=== PATIENT | female | born 1995 | race Caucasian/White ===

== ENCOUNTER 2019-01-09 16:46 | Emergency (ER) | payer OTHER ==
[~2019-01-09] VITALS: Ht 152.4 cm; Wt 57.6 kg
[2019-01-09 16:53] VITALS: BP 135/77
--- NOTE | 2019-01-09 17:19 | NUR ---
23 Y FEMALE C/O VAGINAL SPOTTING. PT STATES SHE WAS AT [place] LAST WEEK AND WAS TOLD SHE WAS . UNKOWN WKS OF , LMP 12/02/18. +CRAMPING PAIN 10/18. +CONSTIPATION. BOWEL SOUNDS ACTIVE IN ALL 4 QUADRANTS. ABDOMEN SOFT AND FLAT. AA0X4. VSS AT THIS TIME. BED IS DOWN, LOCKED, BED RAIL X 1, ERMD TO SEE PT. HX OF ASTHMA, HTN, WPW syndrome.
--- NOTE | 2019-01-09 17:22 | NUR ---
LAB AT BEDSIDE
--- NOTE | 2019-01-09 17:28 | NUR ---
US AT BEDSIDE
[2019-01-09 17:34] LABS: APPEARANCE,URINE CLEAR (CLEAR); BILIRUBIN,URINE NEGATIVE (NEGATIVE); BLOOD, URINE NEGATIVE (NEGATIVE); COLOR,URINE YELLOW (YELLOW); LEUKOCYTE ESTERASE ,URINE NEGATIVE (NEGATIVE); NITRITE, URINE NEGATIVE (NEGATIVE); UGLUCOSE NEGATIVE (NEGATIVE)
[2019-01-09 17:39] LABS: BASOPHILS % (AUTO) 0.3 % (0.0-2.0); EOSINOPHILS # (AUTO) 0.1 K/uL (0-0.4); EOSINOPHILS % (AUTO) 1.3 % (0.0-4.0); HEMATOCRIT 37.8 % (36-48); HEMOGLOBIN 12.6 g/dL (12.0-16.0); LYMPHOCYTES # (AUTO) 2.6 K/uL (2.5-16.5); MEAN CORPUSCULAR HEMOGLOBIN 30 pg (27-31); MEAN CORPUSCULAR HGB CONC 34 g/dL (33-37); MEAN CORPUSCULAR VOLUME 90.7 fL (80-94); MONOCYTES # (AUTO) 0.6 K/uL (0.8-1.0); MONOCYTES % (AUTO) 5.2 % (1.7-9.3); NEUTROPHILS # (AUTO) 8.4 K/uL (1.8-7.7); NEUTROPHILS % (AUTO) 71.2 % (42.2-75.2); PLATELET COUNT (AUTO) 260 K/uL (140-450); RED BLOOD CELL COUNT(AUTO) 4.17 MIL/uL (4.20-5.40); RED CELL DISTRIBUTION WIDTH 13.7 % (11.6-13.7); WHITE BLOOD COUNT (AUTO) 11.8 K/uL (4.8-10.8)
--- NOTE | 2019-01-09 18:01 | NUR ---
pt amb to restroom
--- NOTE | 2019-01-09 18:44 | NUR ---
vss at this time, aa0x4. pt sitting in bed. waiting for ultrasound results.
--- NOTE | 2019-01-09 18:50 | NUR ---
dr barnett re-evaluating pt
[2019-01-09 18:58] VITALS: BP 115/60
--- NOTE | 2019-01-09 18:58 | NUR ---
Patient discharged with v/s stable. Written and verbal after care instructions given and explained. Patient verbalized understanding. Ambulatory with steady gait. All questions addressed prior to discharge. Advised to follow up with GYNOCOLOGIST.
== END 2019-01-09 18:58 | disposition home or self-care (01) ==
LOC: MED 16:46
DX: O20.0 Threatened abortion (principal); J45.909 Unspecified asthma, uncomplicated; I10 Essential (primary) hypertension; Z88.1 Allergy status to other antibiotic agents; Z3A.01 Less than 8 weeks gestation of pregnancy
CPT/HCPCS: 36415; 76817; 81003; 81025; 84702; 85025; 86900; 86901; 99284; Q0092

== ENCOUNTER 2019-01-15 02:39 | Emergency (ER) | payer OTHER ==
[~2019-01-15] VITALS: Ht 152.4 cm; Wt 60.8 kg
[2019-01-15 02:45] VITALS: BP 140/90
--- NOTE | 2019-01-15 02:45 | NUR ---
TO BED # 04 AMBULATORY
--- NOTE | 2019-01-15 02:46 | NUR ---
PT CAME INTO ER WITH C/O DIARRHEA X 1 DAY. PT STATED SHE FEELS NAUSEOUS, HAS CHILLS, FEELS WEAK, AND A BURNING SENSATION IN THE EPIGASTRIC REGION. PT DENIES VOMITING OR FEVER. PT STATES SHE IS 6 WEEKS . LMP IS DECEMBER 02 AND PROJECTED DUE DATE IS SEPTEMBER 06. PT IS A/OX4.PAIN LEVEL IS 6/10 AT THIS TIME. ER MD MADE AWARE OF STATUS. SAFETY MEASURS IN PLACE, BED RAILS UP X 1.
[2019-01-15] MEDS ORDERED: LOPERAMIDE 2 MG CAP PO ONE ×2 (03:45→04:14)
[2019-01-15] MEDS ORDERED: NACL 0.9% 1,000 ML IV ONE (03:45)
[2019-01-15 03:57] LABS: BASOPHILS # (AUTO) 0.1 K/uL (0.00-0.22); BASOPHILS % (AUTO) 0.7 % (0.0-2.0); EOSINOPHILS # (AUTO) 0.1 K/uL (0-0.4); EOSINOPHILS % (AUTO) 0.6 % (0.0-4.0); LYMPHOCYTES # (AUTO) 1.8 K/uL (2.5-16.5); LYMPHOCYTES % (AUTO) 12.9 % (20.5-51.1); MEAN CORPUSCULAR HEMOGLOBIN 30 pg (27-31); MEAN CORPUSCULAR HGB CONC 33 g/dL (33-37); MEAN CORPUSCULAR VOLUME 90.8 fL (80-94); MONOCYTES # (AUTO) 0.7 K/uL (0.8-1.0); MONOCYTES % (AUTO) 5.1 % (1.7-9.3); NEUTROPHILS # (AUTO) 11.5 K/uL (1.8-7.7); NEUTROPHILS % (AUTO) 80.7 % (42.2-75.2); PLATELET COUNT (AUTO) 276 K/uL (140-450); RED BLOOD CELL COUNT(AUTO) 4.29 MIL/uL (4.20-5.40); RED CELL DISTRIBUTION WIDTH 13.3 % (11.6-13.7); WHITE BLOOD COUNT (AUTO) 14.2 K/uL (4.8-10.8)
--- NOTE | 2019-01-15 04:03 | NUR ---
pt ambulated to the restroom, pt tolerated well.
[2019-01-15 04:34] LABS: CARBON DIOXIDE 25.7 mmol/L (21-32); CREATININE 0.5 mg/dL (0.6-1.3); POTASSIUM 3.7 mmol/L (3.5-5.1)
[2019-01-15 05:00] VITALS: BP 140/90
--- NOTE | 2019-01-15 05:00 | NUR ---
Patient discharged with v/s stable. Written and verbal after care instructions given and explained. Patient verbalized understanding. Ambulatory with steady gait. All questions addressed prior to discharge. Advised to follow up with PMD.
== END 2019-01-15 05:00 | disposition home or self-care (01) ==
LOC: MED 02:39
DX: O26.891 Other specified pregnancy related conditions, first trimester (principal); R19.7 Diarrhea, unspecified; R53.1 Weakness; J45.909 Unspecified asthma, uncomplicated; I10 Essential (primary) hypertension; Z88.1 Allergy status to other antibiotic agents; Z3A.01 Less than 8 weeks gestation of pregnancy
CPT/HCPCS: 36415; 80048; 81025; 85025; 96360; 99283; J7030

== ENCOUNTER 2019-01-25 14:45 | Emergency (ER) | payer OTHER ==
[~2019-01-25] VITALS: Ht 152.4 cm; Wt 62.8 kg
[2019-01-25 15:15] VITALS: BP 145/78
--- NOTE | 2019-01-25 18:01 | NUR ---
PT AMBULATED TO BED 11
--- NOTE | 2019-01-25 19:00 | NUR ---
C/O INTERMITTENT SHARP SHOOTING SUBSTERNAL CHEST PAIN X 12/02/2018; SAME TIME SHE WAS PLACED ON Nifedipine PT DESCRIBES PAIN NON RADIATING, SELF RELIEVING, ACCOMPANIED WITH SOB DAILY OCCURENCE----WALKED INTO ER TODAY BECAUSE VIBRATION ANALYST REFERRED HER SINCE HER NEXT APPT IS IN 1-2 WEEKS --DENIES VAGINAL BLEEDING, DENIES INJURY/TRAUMA, DENIES COLD SYMPTOMS
[2019-01-25] MEDS ORDERED: ACETAMINOPHEN EXTRA STRENGTH 500 MG TAB PO ONE (19:50)
[2019-01-25] MEDS ORDERED: NIFEdipine 30 MG TABER PO ONE (19:50)
--- NOTE | 2019-01-25 20:10 | NUR ---
PT REFUSING TYLENOL. ER MD CUEVAS AWARE.
[2019-01-25 20:33] LABS: APPEARANCE,URINE CLEAR (CLEAR); BILIRUBIN,URINE NEGATIVE (NEGATIVE); BLOOD, URINE NEGATIVE (NEGATIVE); COLOR,URINE YELLOW (YELLOW); LEUKOCYTE ESTERASE ,URINE NEGATIVE (NEGATIVE); NITRITE, URINE NEGATIVE (NEGATIVE); UGLUCOSE NEGATIVE (NEGATIVE)
[2019-01-25 21:07] VITALS: BP 135/70
--- NOTE | 2019-01-25 21:07 | NUR ---
Patient discharged with v/s stable. Written and verbal after care instructions given and explained. Patient alert, oriented and verbalized understanding of instructions. Ambulatory with steady gait. All questions addressed prior to discharge. ID band removed. Patient advised to follow up with OB. Rx of NIFEDIPINE given. Patient educated on indication of medication including possible reaction and side effects. Opportunity to ask questions provided and answered.
== END 2019-01-25 21:07 | disposition home or self-care (01) ==
LOC: MED 14:45
DX: O13.1 Gestational [pregnancy-induced] hypertension without significant proteinuria, first trimester (principal); O26.891 Other specified pregnancy related conditions, first trimester; R42 Dizziness and giddiness; R07.9 Chest pain, unspecified; J45.909 Unspecified asthma, uncomplicated; K21.9 Gastro-esophageal reflux disease without esophagitis; Z3A.08 8 weeks gestation of pregnancy; Z88.1 Allergy status to other antibiotic agents
CPT/HCPCS: 76815; 81003; 81025; 93005; 99284

== ENCOUNTER 2019-03-17 20:24 | Emergency (ER) | payer OTHER ==
[~2019-03-17] VITALS: Ht 152.4 cm; Wt 61.7 kg
[2019-03-17 20:48] VITALS: BP 138/77
[2019-03-17] MEDS ORDERED: NIFE30TE98 PO (20:53)
[2019-03-17] MEDS ORDERED: SUCR1TAB35 PO (20:54)
--- NOTE | 2019-03-17 20:54 | NUR ---
PT AMBULATED TO LOBBY. PROVIDING URINE.
--- NOTE | 2019-03-17 20:59 | NUR ---
PT AMBULATED TO BED 04
--- NOTE | 2019-03-17 21:00 | NUR ---
PT BIB MOTHER C/O RLQ ABD PAIN X2 DAYS. PT STATES PAIN 5-6 INTERMITTENT CRAMPING; STATES WHITE VAG DISCHARGE, DENIES VAGINAL BLEEDING. G3PO: 2 THERAPUTIC ABORTIONS. DENIES N/V/D. PT STATES SHE HAS A PRIMARY OB. PT ACTING APPROPRIATLY, SPEAKING IN CLEAR AND COMPLETE SENTENCES. BREATHING EQUAL AND UNLABORED. PT PLACED IN GOWN, IN BED; BEDRAILS UP X1. PENDING ERMD EVAL. --FHR: 150 PMH: HTN, H-PILORI, WPW
--- NOTE | 2019-03-17 21:12 | NUR ---
DR. QUISPE AT BEDSIDE.
[2019-03-17 21:35] VITALS: BP 138/77
== END 2019-03-17 21:35 | disposition home or self-care (01) ==
LOC: MED 20:24
DX: O26.892 Other specified pregnancy related conditions, second trimester (principal); R10.31 Right lower quadrant pain; J45.909 Unspecified asthma, uncomplicated; K21.9 Gastro-esophageal reflux disease without esophagitis; I10 Essential (primary) hypertension; Z3A.15 15 weeks gestation of pregnancy; Z88.1 Allergy status to other antibiotic agents; Z79.899 Other long term (current) drug therapy
CPT/HCPCS: 81002; 81025; 99282

== ENCOUNTER 2019-03-21 06:35 | Emergency (ER) | payer OTHER ==
[~2019-03-21] VITALS: Ht 152.4 cm; Wt 63.5 kg
[~2019-03-21 06:35] MED LIST: NIFE30TE98 PO; SUCR1TAB35 PO
[2019-03-21 06:40] VITALS: BP 135/75
--- NOTE | 2019-03-21 06:40 | NUR ---
23 Y/O FEMALE PRESENTS TO ED WITH C/O BUTT PAIN 4/10 AFTER WAKING AND BILAT SUPRAPUBIC CRAMPING WITH SPOTTING X30 MIN. PT STATES SYMPTOMS STARTED UPON WAKING. SHE DRANK WATER AND IT HELPED WITH BUTT. WHILE USING RESTROOM, SHE WAS WIPING AND FOUND THE BLOOD AND CAME TO ER RIGHT AWAY. CRAMPING PAIN 2/10 AND NON-RADIATING. VSS. POSITIONED IN BED FOR COMFORT. ER MD AWARE. CONTINUE TO MONITOR.
--- NOTE | 2019-03-21 06:40 | NUR ---
PT TAKEN TO BED 2
--- NOTE | 2019-03-21 07:14 | NUR ---
received report from epifanio hong
[2019-03-21] MEDS ORDERED: ACETAMINOPHEN EXTRA STRENGTH 500 MG TAB PO ONE (07:20)
--- NOTE | 2019-03-21 07:20 | NUR ---
er md at bedside at this time
--- NOTE | 2019-03-21 07:33 | NUR ---
ASSESSED HEART TONES USING DOPPLER, HEART RTE 156, LOCATED IN RLQ, PT TOLERATED WELL.
[2019-03-21 08:22] VITALS: BP 112/68
== END 2019-03-21 08:22 | disposition home or self-care (01) ==
LOC: MED 06:35
DX: O26.851 Spotting complicating pregnancy, first trimester (principal); O26.891 Other specified pregnancy related conditions, first trimester; R51 Headache; R10.30 Lower abdominal pain, unspecified; K21.9 Gastro-esophageal reflux disease without esophagitis; I10 Essential (primary) hypertension; Z79.899 Other long term (current) drug therapy; Z88.1 Allergy status to other antibiotic agents; Z3A.15 15 weeks gestation of pregnancy
CPT/HCPCS: 81002; 81025; 99282

== ENCOUNTER 2019-05-27 23:32 | Emergency (ER) | payer OTHER ==
[~2019-05-27] VITALS: Ht 152.4 cm; Wt 72.3 kg
[2019-05-27 23:40] VITALS: BP 128/76
[2019-05-28 00:45] LABS: APPEARANCE,URINE CLEAR (CLEAR); BILIRUBIN,URINE NEGATIVE (NEGATIVE); BLOOD, URINE NEGATIVE (NEGATIVE); COLOR,URINE YELLOW (YELLOW); LEUKOCYTE ESTERASE ,URINE NEGATIVE (NEGATIVE); NITRITE, URINE NEGATIVE (NEGATIVE); UGLUCOSE NEGATIVE (NEGATIVE)
[2019-05-28 00:49] LABS: BASOPHILS # (AUTO) 0.1 K/uL (0.00-0.22); BASOPHILS % (AUTO) 0.6 % (0.0-2.0); EOSINOPHILS # (AUTO) 0.2 K/uL (0-0.4); EOSINOPHILS % (AUTO) 1.1 % (0.0-4.0); HEMATOCRIT 36.5 % (36-48); LYMPHOCYTES % (AUTO) 19.2 % (20.5-51.1); MEAN CORPUSCULAR HEMOGLOBIN 31 pg (27-31); MEAN CORPUSCULAR HGB CONC 33 g/dL (33-37); MEAN CORPUSCULAR VOLUME 95.2 fL (80-94); MONOCYTES # (AUTO) 0.8 K/uL (0.8-1.0); MONOCYTES % (AUTO) 5.3 % (1.7-9.3); NEUTROPHILS # (AUTO) 11.4 K/uL (1.8-7.7); NEUTROPHILS % (AUTO) 73.8 % (42.2-75.2); PLATELET COUNT (AUTO) 304 K/uL (140-450); RED BLOOD CELL COUNT(AUTO) 3.83 MIL/uL (4.20-5.40); RED CELL DISTRIBUTION WIDTH 14.1 % (11.6-13.7); WHITE BLOOD COUNT (AUTO) 15.5 K/uL (4.8-10.8)
[2019-05-28 01:02] LABS: ANION GAP 11.7 (8-16); CARBON DIOXIDE 26.7 mmol/L (21-32); CREATININE 0.4 mg/dL (0.6-1.3); POTASSIUM 3.4 mmol/L (3.5-5.1)
[2019-05-28 01:06] LABS: ALBUMIN 2.7 g/dL (3.4-5.0); TOTAL BILIRUBIN 0.2 mg/dL (0.0-1.0)
[2019-05-28] MEDS: NACL 0.9% 1,000 ML IV ONE (01:10)
[2019-05-28] MEDS: ONDANSETRON 4 MG/2 ML VIAL IVP ONE (01:11)
[2019-05-28 01:57] VITALS: BP 113/62
== END 2019-05-28 01:57 | disposition home or self-care (01) ==
LOC: MED 23:32
DX: O21.8 Other vomiting complicating pregnancy (principal); O26.892 Other specified pregnancy related conditions, second trimester; R19.7 Diarrhea, unspecified; K21.9 Gastro-esophageal reflux disease without esophagitis; I10 Essential (primary) hypertension; I45.6 Pre-excitation syndrome; Z88.1 Allergy status to other antibiotic agents; Z79.899 Other long term (current) drug therapy
CPT/HCPCS: 36415; 80053; 81003; 83690; 85025; 96361; 96374; 99283; J2405; J7030

== ENCOUNTER 2019-06-27 09:45 | Inpatient (IN) | payer OTHER ==
[~2019-06-27] VITALS: Ht 154.9 cm; Wt 76.4 kg
[2019-06-27 09:47] VITALS: BP 129/67
[2019-06-27] MEDS ORDERED: PREN-380 PO (11:40)
[2019-06-27] MEDS ORDERED: BETAMETH ACET/BETAMETH NA PH 30 MG/5 ML VIAL IM SCH (11:40)
[2019-06-27] MEDS ORDERED: BETAMETH ACET/BETAMETH NA PH 30 MG/5 ML VIAL IM ONE (11:44)
[2019-06-27 11:55] VITALS: BP 140/74
[2019-06-27 13:21] LABS: BASOPHILS % (AUTO) 0.2 % (0.0-2.0); EOSINOPHILS # (AUTO) 0.1 K/uL (0-0.4); EOSINOPHILS % (AUTO) 0.6 % (0.0-4.0); HEMATOCRIT 36.2 % (36-48); HEMOGLOBIN 11.7 g/dL (12.0-16.0); LYMPHOCYTES # (AUTO) 2.8 K/uL (2.5-16.5); LYMPHOCYTES % (AUTO) 20.8 % (20.5-51.1); MEAN CORPUSCULAR HEMOGLOBIN 30 pg (27-31); MEAN CORPUSCULAR HGB CONC 32 g/dL (33-37); MEAN CORPUSCULAR VOLUME 93.2 fL (80-94); MONOCYTES # (AUTO) 0.9 K/uL (0.8-1.0); MONOCYTES % (AUTO) 6.5 % (1.7-9.3); NEUTROPHILS # (AUTO) 9.6 K/uL (1.8-7.7); NEUTROPHILS % (AUTO) 71.9 % (42.2-75.2); PLATELET COUNT (AUTO) 264 K/uL (140-450); RED BLOOD CELL COUNT(AUTO) 3.89 MIL/uL (4.20-5.40); RED CELL DISTRIBUTION WIDTH 13.9 % (11.6-13.7); WHITE BLOOD COUNT (AUTO) 13.4 K/uL (4.8-10.8)
[2019-06-27 13:38] LABS: APPEARANCE,URINE HAZY (CLEAR); COLOR,URINE YELLOW (YELLOW)
[2019-06-27 13:38] LABS: ANION GAP 12.2 (8-16); CARBON DIOXIDE 24.3 mmol/L (21-32); CREATININE 0.4 mg/dL (0.6-1.3); POTASSIUM 3.5 mmol/L (3.5-5.1)
[2019-06-27 13:39] LABS: BILIRUBIN,URINE NEGATIVE (NEGATIVE); BLOOD, URINE NEGATIVE (NEGATIVE); LEUKOCYTE ESTERASE ,URINE TRACE (NEGATIVE); NITRITE, URINE NEGATIVE (NEGATIVE); UGLUCOSE NEGATIVE (NEGATIVE)
[2019-06-27 13:41] LABS: RBC,URINE 0-5 /HPF (0-5)
[2019-06-27 13:44] LABS: ALBUMIN 2.6 g/dL (3.4-5.0); TOTAL BILIRUBIN 0.2 mg/dL (0.0-1.0)
[2019-06-27 13:46] LABS: PROTHROMBIN TIME 9.5 secs (10.8-13.4)
[2019-06-28] MEDS ORDERED: NITROFURANTOIN 100 MG CAP PO SCH (08:00)
[2019-06-28] MEDS ORDERED: BETAMETH ACET/BETAMETH NA PH 30 MG/5 ML VIAL IM ONE (12:02)
--- NOTE | 2019-06-28 13:17 | NUR ---
PATIENT HAS BEEN SCREENED AND CATEGORIZED LOW NUTRITION RISK. PATIENT WILL BE SEEN WITHIN 7 DAYS OF ADMISSION. 07/03/[address]
[2019-06-28 15:53] LABS: URINE TOTAL PROTEIN 12.2 mg/dL (0-12)
== END 2019-06-28 15:50 | disposition home or self-care (01) | DRG 833 ==
LOC: MED 09:45 → MLD 10:29 → EDSTATUS 10:37 → MLD 10:42 → OBSVTOIN 11:37
PROVIDERS: ADMIT Obstetrics & Gynecology; ATTEND Obstetrics & Gynecology
DX: O60.03 Preterm labor without delivery, third trimester (principal); O13.4 Gestational [pregnancy-induced] hypertension without significant proteinuria, complicating childbirth; Z3A.31 31 weeks gestation of pregnancy
CPT/HCPCS: 36415; 76810; 76817; 80053; 81001; 84156; 85025; 85379; 85610; 85730; 86886; 86900; 86901; 87086; 99281; G0378; J0702; Q0092

== ENCOUNTER 2019-11-25 11:58 | Emergency (ER) | payer OTHER, SELFPAY ==
[~2019-11-25] VITALS: Ht 152.4 cm; Wt 72.6 kg
[~2019-11-25 11:58] MED LIST changes: -NIFE30TE98 PO; +PREN-380 PO
[2019-11-25 13:10] VITALS: BP 140/80
[2019-11-25] MEDS ORDERED: ALBUTEROL HFA MDI 90 MCG/ACTUATION 8 GM INH ONE (14:05)
[2019-11-25] MEDS ORDERED: NACL 0.9% 1,000 ML IV ONE (14:05)
[2019-11-25] MEDS ORDERED: PROMETH/CODEINE 6.25-10MG/5ML 5 ML UDC PO ONE (14:20)
[2019-11-25 14:32] LABS: BASOPHILS # (AUTO) 0.1 K/uL (0.00-0.22); BASOPHILS % (AUTO) 0.8 % (0.0-2.0); EOSINOPHILS # (AUTO) 0.1 K/uL (0-0.4); EOSINOPHILS % (AUTO) 1.2 % (0.0-4.0); HEMATOCRIT 44.3 % (36-48); HEMOGLOBIN 14.8 g/dL (12.0-16.0); LYMPHOCYTES # (AUTO) 2.3 K/uL (2.5-16.5); LYMPHOCYTES % (AUTO) 25.4 % (20.5-51.1); MEAN CORPUSCULAR HEMOGLOBIN 30 pg (27-31); MEAN CORPUSCULAR HGB CONC 33 g/dL (33-37); MEAN CORPUSCULAR VOLUME 91.2 fL (80-94); MONOCYTES # (AUTO) 0.6 K/uL (0.8-1.0); NEUTROPHILS # (AUTO) 5.8 K/uL (1.8-7.7); NEUTROPHILS % (AUTO) 65.6 % (42.2-75.2); PLATELET COUNT (AUTO) 311 K/uL (140-450); RED BLOOD CELL COUNT(AUTO) 4.86 MIL/uL (4.20-5.40); RED CELL DISTRIBUTION WIDTH 13.7 % (11.6-13.7); WHITE BLOOD COUNT (AUTO) 8.9 K/uL (4.8-10.8)
[2019-11-25 14:42] LABS: ANION GAP 14.4 (8-16); CARBON DIOXIDE 25.6 mmol/L (21-32); CREATININE 0.7 mg/dL (0.6-1.3)
[2019-11-25 14:48] LABS: ALBUMIN 4.1 g/dL (3.4-5.0); TOTAL BILIRUBIN 0.4 mg/dL (0.0-1.0)
[2019-11-25 16:09] VITALS: BP 140/80
== END 2019-11-25 16:09 | disposition home or self-care (01) ==
LOC: MED 11:58 → EEVIPCON 11:58 → MED 16:09
DX: J06.9 Acute upper respiratory infection, unspecified (principal); Z20.828 Contact with and (suspected) exposure to other viral communicable diseases; K21.9 Gastro-esophageal reflux disease without esophagitis; I45.6 Pre-excitation syndrome; I10 Essential (primary) hypertension; Z79.899 Other long term (current) drug therapy; Z88.1 Allergy status to other antibiotic agents; Z91.02 Food additives allergy status
CPT/HCPCS: 36415; 71045; 80053; 85025; 87804; 99284; J3535; J7030; Q0092; U0002